=== PATIENT | male | born 1960 | race Caucasian/White ===

== ENCOUNTER 2024-06-09 09:35 | Outpatient (CLI) | payer OTHER, SELFPAY ==
--- NOTE | 2024-06-09 09:44 | CTR_ITS ---
PROCEDURE INFORMATION: Exam: CT Neck With Contrast Exam date and time: 06/09/2024 10:32 AM Age: 63 years old Clinical indication: Mass, lump, or swelling in neck; Patient HX: Localized swelling of left salivary gland. PT states the swelling comes and goes. ; Additional info: Localized swelling, mass and lump, neck TECHNIQUE: Imaging protocol: Computed tomography of the neck with contrast. Radiation optimization: All CT scans at this facility use at least one of these dose optimization techniques: automated exposure control; mA and/or kV adjustment per patient size (includes targeted exams where dose is matched to clinical indication); or iterative reconstruction. Contrast material: OMNI 350; Contrast volume: 100 ml; Contrast route: INTRAVENOUS (IV); COMPARISON: No relevant prior studies available. RADIATION DOSE METRICS: Total DLP (mGy-cm): 268.93 FINDINGS: Salivary glands: Normal. Glands are normal in size. Oral cavity: Suboptimal evaluation of the oral cavity secondary to streak artifact from dental hardware. Pharynx: Nasopharynx, oropharynx and hypopharynx are unremarkable. Prevertebral and retropharyngeal spaces: Unremarkable. Larynx: Unremarkable. Epiglottis is normal. Thyroid: Right thyroid nodule/cyst measuring up to 0.5 cm. The thyroid gland would be better assessed with thyroid ultrasound if clinically warranted. Trachea: Visualized upper trachea is unremarkable. Lungs: Lung apices are unremarkable. Lymph nodes: No cervical lymphadenopathy. Bones/joints: No acute bony abnormality. Soft tissues: Subcutaneous soft tissues are unremarkable. CT/CT neck w con* [id number] IMPRESSION: 1. No acute soft tissue neck pathology. The bilateral submandibular and parotid glands are unremarkable in appearance. Recommend clinical correlation and follow-up imaging as clinically warranted. 2. Right thyroid nodule/cyst. The thyroid gland would be better assessed with thyroid ultrasound if clinically warranted. COMMENTS: Consistent with the [employer]'s Incidental Findings Committee white paper (J Am Johnathan Radiol 2015): In patients aged 35 years and older with an incidental thyroid nodule equal to or greater than 1.[address], MRI or extrathyroidal US, further evaluation with dedicated thyroid US is recommended for patients with normal life expectancy and without comorbidities. For smaller nodules without suspicious features, no further evaluation or follow up is recommended.
[2024-06-09 10:43] LABS: Blood Urea Nitrogen 14 mg/dL (8-23); Glomerular Filtration Rate 75.5 mL/min (90-130)
[2024-06-09] MEDS: iohexol 350 mg/mL 500 mL Btl (per mL) IV (10:44)
== END 2024-06-09 09:36 | disposition home or self-care (01) ==
PROVIDERS: Radiology Diagnostic Radiology; PCP Family Medicine; Visit Provider Specialist
DX: R22.1 Localized swelling, mass and lump, neck (principal); E04.1 Nontoxic single thyroid nodule
CPT/HCPCS: 70491; 82565; 84520